=== PATIENT | female | born 1975 | race Caucasian/White ===

== ENCOUNTER 2017-11-01 17:14 | Emergency (ER) | payer BC ==
[~2017-11-01] VITALS: Ht 157.5 cm; Wt 63.5 kg
[2017-11-01 17:18] VITALS: BP_SYST 128
[2017-11-01] MEDS: ONDANSETRON 4 MG ODT TAB PO ONE (18:14)
[2017-11-01] MEDS: KETOROLAC TROMETHAMINE 60 MG/2 ML VIAL IM ONE (18:15)
[2017-11-01 18:41] VITALS: BP_SYST 120
== END 2017-11-01 18:41 | disposition home or self-care (01) ==
LOC: SED 17:14
DX: R07.89 Other chest pain (principal); R05 Cough; R06.00 Dyspnea, unspecified; J45.909 Unspecified asthma, uncomplicated; Z88.1 Allergy status to other antibiotic agents
CPT/HCPCS: 96372; 99283; J1885; Q0162

== ENCOUNTER 2017-12-14 07:15 | Day surgery (SDC) | payer BC ==
[~2017-12-14] VITALS: Ht 157.5 cm; Wt 62.1 kg
[2017-12-14] MEDS ORDERED: LR 1,000 ML IV SCH (10:24)
[2017-12-14] MEDS ORDERED: METOCLOPRAMIDE HCL 10 MG/2 ML VIAL IVP PRN (10:30)
[2017-12-14] MEDS ORDERED: MORPHINE 4 MG/ML INJ. SYRINGE IVP PRN ×3 (10:30)
[2017-12-14] MEDS ORDERED: ONDANSETRON HCL 4 MG/2 ML VIAL IVP PRN (11:15)
[2017-12-14] MEDS ORDERED: OXYCODONE/ACETAMINOPHEN 5-325 TABLET PO PRN ×2 (11:15)
[2017-12-14] MEDS ORDERED: MORPHINE 4 MG/ML INJ. SYRINGE ONE (11:29)
[2017-12-14 12:45] VITALS: BP_SYST 116
== END 2017-12-14 13:45 | disposition home or self-care (01) ==
LOC: SMU 07:15 → SDS 07:15
PROVIDERS: ATTEND Obstetrics & Gynecology
DX: N92.0 Excessive and frequent menstruation with regular cycle (principal); Z98.890 Other specified postprocedural states; Z80.3 Family history of malignant neoplasm of breast; Z87.891 Personal history of nicotine dependence; Z79.899 Other long term (current) drug therapy; Z88.8 Allergy status to other drugs, medicaments and biological substances; I10 Essential (primary) hypertension; J45.909 Unspecified asthma, uncomplicated; K21.9 Gastro-esophageal reflux disease without esophagitis; M19.90 Unspecified osteoarthritis, unspecified site; G62.9 Polyneuropathy, unspecified
CPT/HCPCS: 58563; 88305; J2270; J7120

== ENCOUNTER 2018-03-24 16:26 | Emergency (ER) | payer BC ==
[~2018-03-24] VITALS: Ht 157.5 cm; Wt 63.5 kg
[2018-03-24 16:26] VITALS: BP_SYST 136
[2018-03-24] MEDS ORDERED: LIDOCAINE 1%, 20 ML MDV 20 ML ONE (17:52)
[2018-03-24] MEDS ORDERED: ONDANSETRON HCL 4 MG/2 ML VIAL IVP ONE (18:15)
[2018-03-24] MEDS ORDERED: MORPHINE 4 MG/ML INJ. SYRINGE IVP ONE (18:15)
[2018-03-24 18:23] LABS: BILIRUBIN,URINE NEGATIVE (NEGATIVE); BLOOD, URINE 1+ (NEGATIVE); CLARITY/URINE CLEAR (CLEAR); COLOR,URINE YELLOW (YELLOW); GLUCOSE,URINE NEGATIVE (NEGATIVE); KETONES,URINE TRACE (NEGATIVE); LEUKOCYTE ESTERASE ,URINE NEGATIVE (NEGATIVE); NITRITE, URINE NEGATIVE (NEGATIVE); PH,URINE 5.5 (5.0-8.0); PROTEIN URINE NEGATIVE (NEGATIVE); UROBILINOGEN,URINE 0.2 (0.2-1.0)
[2018-03-24 18:25] LABS: CSF PROTEIN 36 mg/dL (15-45)
[2018-03-24 18:26] LABS: CSF GLUCOSE 63 mg/dL (40-70)
[2018-03-24 18:33] LABS: BACTERIA,URINE FEW /HPF (None Seen); RBC,URINE 0-3 /HPF (0-3); WBC,URINE 0-3 /HPF (0-3)
[2018-03-24 18:36] LABS: BASOPHILS # (AUTO) 0.1 K/uL (0.0-0.2); BASOPHILS % (AUTO) 0.7 % (0.0-2.0); EOSINOPHILS # (AUTO) 0.5 K/uL (0.0-0.4); EOSINOPHILS % (AUTO) 4.6 % (0.0-4.0); HEMATOCRIT 41.7 % (36-48); HEMOGLOBIN 14.1 g/dL (12.0-16.0); LYMPHOCYTES # (AUTO) 2.4 K/uL (1.0-5.5); MEAN CORPUSCULAR HEMOGLOBIN 32 pg (27-31); MEAN CORPUSCULAR HGB CONC 34 % (32-36); MEAN CORPUSCULAR VOLUME 95 fL (79.0-98.0); MONOCYTES # (AUTO) 0.7 K/uL (0.0-1.0); MONOCYTES % (AUTO) 6.4 % (1.7-9.3); NEUTROPHILS # (AUTO) 7.4 K/uL (1.8-7.7); NEUTROPHILS % (AUTO) 66.3 % (40.0-70.0); PLATELET COUNT (AUTO) 250 K/uL (130-430); RED BLOOD CELL COUNT(AUTO) 4.39 MIL/uL (4.2-6.2); RED CELL DISTRIBUTION WIDTH 12.3 % (9.0-15.0); WHITE BLOOD COUNT (AUTO) 11.1 K/uL (4.8-10.8)
[2018-03-24 18:45] LABS: CALCIUM 9.1 mg/dL (8.4-11.0); CREATININE 0.73 mg/dL (0.55-1.30); POTASSIUM 3.3 mmol/L (3.5-5.1)
[2018-03-24 18:45] LABS: CSF APPEARANCE SLIGHTLY HAZY (CLEAR); CSF COLOR PINK (COLORLESS); CSF VOLUME 4.5 mL
[2018-03-24 18:46] LABS: CSF RED BLOOD CELL COUNT #1 770 /uL (0-0); CSF RED BLOOD CELL COUNT #4 0 /uL (0-0); CSF WHITE BLOOD CELL COUNT #1 2 /uL (0-5); CSF WHITE BLOOD CELL COUNT #4 1 /uL (0-5)
[2018-03-24 18:50] LABS: ALBUMIN 3.6 g/dL (3.4-4.8); TOTAL BILIRUBIN 0.2 mg/dL (0.0-1.0)
[2018-03-24] MEDS ORDERED: HYDROmorphone 1 MG INJ. 1 MG/ML AMPUL IVP ONE (19:15)
[2018-03-24 20:04] VITALS: BP_SYST 129
== END 2018-03-24 20:00 | disposition home or self-care (01) ==
LOC: SED 16:26
DX: R51 Headache (principal); E87.6 Hypokalemia; B34.9 Viral infection, unspecified; M54.9 Dorsalgia, unspecified; R20.2 Paresthesia of skin; R26.2 Difficulty in walking, not elsewhere classified; J45.909 Unspecified asthma, uncomplicated; Z88.1 Allergy status to other antibiotic agents; Z88.6 Allergy status to analgesic agent
CPT/HCPCS: 36415; 70450; 71045; 80053; 81000; 81025; 82947; 83605; 84157; 84484; 85025; 85048; 87040; 87070; 87086; 87205; 87899; 89051 ×2; 96374; 96375; 99285; J1170; J2001; J2270; J2405

== ENCOUNTER 2018-12-31 16:14 | Inpatient (IN) | payer BC ==
[~2018-12-31] VITALS: Ht 157.5 cm; Wt 65.5 kg
[2018-12-31 16:14] VITALS: BP_SYST 141
[2018-12-31] MEDS ORDERED: NACL 0.9% 1,000 ML IV ONE (16:30)
[2018-12-31] MEDS ORDERED: IPRATROPIUM/ALBUTEROL SULFATE 3 ML AMPUL.NEB (DUONEB) INH ONE ×2 (16:30→17:30)
[2018-12-31] MEDS ORDERED: MAGNESIUM SULFATE 50 ML IV ONE (16:30)
[2018-12-31] MEDS ORDERED: methylPREDNISolone SOD SUCC/PF 62.5 MG/ML VIAL IVP ONE (16:30)
[2018-12-31 16:55] LABS: BASOPHILS # (AUTO) 0.1 K/uL (0.0-0.2); BASOPHILS % (AUTO) 0.7 % (0.0-2.0); EOSINOPHILS # (AUTO) 1.8 K/uL (0.0-0.4); EOSINOPHILS % (AUTO) 11.4 % (0.0-4.0); HEMATOCRIT 44.1 % (36-48); LYMPHOCYTES # (AUTO) 3.6 K/uL (1.0-5.5); LYMPHOCYTES % (AUTO) 22.3 % (20.5-51.5); MEAN CORPUSCULAR HEMOGLOBIN 33 pg (27-31); MEAN CORPUSCULAR HGB CONC 34 % (32-36); MEAN CORPUSCULAR VOLUME 96 fL (79.0-98.0); MONOCYTES # (AUTO) 1.2 K/uL (0.0-1.0); MONOCYTES % (AUTO) 7.7 % (1.7-9.3); NEUTROPHILS # (AUTO) 9.3 K/uL (1.8-7.7); NEUTROPHILS % (AUTO) 57.9 % (40.0-70.0); PLATELET COUNT (AUTO) 255 K/uL (130-430)
[2018-12-31 17:02] LABS: CALCIUM 9.4 mg/dL (8.4-11.0); POTASSIUM 3.7 mmol/L (3.5-5.1)
[2018-12-31 17:10] LABS: ALBUMIN 3.6 g/dL (3.4-4.8); TOTAL BILIRUBIN 0.3 mg/dL (0.0-1.0)
[2018-12-31] MEDS ORDERED: ACETAMINOPHEN 500 MG TABLET PO ONE (17:30)
[2018-12-31] MEDS ORDERED: LEVOFLOXACIN 500 MG/D5W 100 ML IV ONE (18:00)
[2018-12-31] MEDS ORDERED: ONDANSETRON HCL 4 MG/2 ML VIAL IVP PRN (19:00)
[2018-12-31 19:30] VITALS: BP_SYST 124
[2018-12-31 19:38] VITALS: BP_SYST 124
[2018-12-31] MEDS ORDERED: VALA10002 PO (19:56)
[2018-12-31] MEDS: ALBUTEROL SULFATE 0.083% 2.5 MG/3 ML VIAL.NEB INH SCH ×2 (20:18→22:24)
[2018-12-31] MEDS: IPRATROPIUM BROM 0.5 MG/2.5 ML VIAL.NEB (ATROVENT) INH SCH ×2 (20:18→22:24)
[2018-12-31] MEDS ORDERED: LORA-843 PO (20:26)
[2018-12-31 20:30] VITALS: BP_SYST 124
[2018-12-31] MEDS ORDERED: BECL10.62 IH (21:41)
[2018-12-31 23:00] VITALS: BP_SYST 135
[2018-12-31] MEDS ORDERED: valACYclovir HCL 500 MG TABLET PO ONE (23:00)
[2018-12-31 23:24] LABS: BILIRUBIN,URINE NEGATIVE (NEGATIVE); BLOOD, URINE NEGATIVE (NEGATIVE); CLARITY/URINE CLEAR (CLEAR); COLOR,URINE YELLOW (YELLOW); GLUCOSE,URINE NEGATIVE (NEGATIVE); KETONES,URINE NEGATIVE (NEGATIVE); LEUKOCYTE ESTERASE ,URINE TRACE (NEGATIVE); NITRITE, URINE NEGATIVE (NEGATIVE); PROTEIN URINE NEGATIVE (NEGATIVE); UROBILINOGEN,URINE 0.2 (0.2-1.0)
[2018-12-31] MEDS ORDERED: FLUTICASONE FUROATE 200 MCG BLST.W.DEV INH ONE (23:30)
[2018-12-31 23:40] LABS: RBC,URINE 0-3 /HPF (0-3)
[2018-12-31 23:41] LABS: BACTERIA,URINE FEW /HPF (None Seen)
[2019-01-01] MEDS: IPRATROPIUM BROM 0.5 MG/2.5 ML VIAL.NEB (ATROVENT) INH PRN (00:47)
[2019-01-01] MEDS: ALBUTEROL SULFATE 0.083% 2.5 MG/3 ML VIAL.NEB INH PRN (00:47)
[2019-01-01] MEDS: ACETAMINOPHEN 325 MG TABLET PO PRN ×2 (01:03→16:29)
[2019-01-01] MEDS ORDERED: DEXAMETHASONE SOD PHOSPHATE 10 MG/ML VIAL IVP ONE (01:30)
[2019-01-01] MEDS: guaiFENesin/DEXTROMETHORPHAN 10 ML UDC PO PRN ×2 (01:33→08:43)
[2019-01-01] MEDS: IPRATROPIUM BROM 0.5 MG/2.5 ML VIAL.NEB (ATROVENT) INH SCH ×6 (03:00→23:05)
[2019-01-01] MEDS: ALBUTEROL SULFATE 0.083% 2.5 MG/3 ML VIAL.NEB INH SCH ×6 (03:00→23:05)
[2019-01-01] MEDS ORDERED: DEXAMETHASONE SOD PHOSPHATE 10 MG/ML VIAL IVP SCH (06:00)
[2019-01-01 06:44] LABS: BASOPHILS # (AUTO) 0.1 K/uL (0.0-0.2); BASOPHILS % (AUTO) 0.5 % (0.0-2.0); EOSINOPHILS # (AUTO) 0.1 K/uL (0.0-0.4); EOSINOPHILS % (AUTO) 0.8 % (0.0-4.0); HEMATOCRIT 39.6 % (36-48); HEMOGLOBIN 13.5 g/dL (12.0-16.0); LYMPHOCYTES # (AUTO) 0.8 K/uL (1.0-5.5); LYMPHOCYTES % (AUTO) 6.8 % (20.5-51.5); MEAN CORPUSCULAR HEMOGLOBIN 33 pg (27-31); MEAN CORPUSCULAR HGB CONC 34 % (32-36); MEAN CORPUSCULAR VOLUME 96 fL (79.0-98.0); MONOCYTES # (AUTO) 0.2 K/uL (0.0-1.0); MONOCYTES % (AUTO) 1.6 % (1.7-9.3); NEUTROPHILS # (AUTO) 10.2 K/uL (1.8-7.7); NEUTROPHILS % (AUTO) 90.3 % (40.0-70.0); PLATELET COUNT (AUTO) 231 K/uL (130-430); RED BLOOD CELL COUNT(AUTO) 4.11 MIL/uL (4.2-6.2); WHITE BLOOD COUNT (AUTO) 11.3 K/uL (4.8-10.8)
[2019-01-01 07:05] LABS: CALCIUM 8.7 mg/dL (8.4-11.0); CREATININE 0.81 mg/dL (0.55-1.30); POTASSIUM 3.4 mmol/L (3.5-5.1)
[2019-01-01 07:14] LABS: ALBUMIN 3.3 g/dL (3.4-4.8); TOTAL BILIRUBIN 0.3 mg/dL (0.0-1.0)
[2019-01-01 08:00] VITALS: BP_SYST 142
[2019-01-01] MEDS: FLUTICASONE FUROATE 200 MCG BLST.W.DEV INH SCH (08:45)
[2019-01-01] MEDS: valACYclovir HCL 500 MG TABLET PO SCH ×2 (08:45→20:06)
[2019-01-01] MEDS ORDERED: FLUTICASONE FUROATE 100 MCG BLST.W.DEV INH SCH (09:00)
[2019-01-01] MEDS ORDERED: AZITHROMYCIN 250 MG TABLET PO ONE (11:15)
[2019-01-01 11:20] VITALS: BP_SYST 120
[2019-01-01] MEDS ORDERED: POTASSIUM CHLORIDE 20 MEQ TAB.PRT.SR PO ONE (11:30)
[2019-01-01 15:46] VITALS: BP_SYST 111
[2019-01-01 20:00] VITALS: BP_SYST 132
[2019-01-01] MEDS ORDERED: DEXAMETHASONE SOD PHOSPHATE 4 MG/ML VIAL IVP ONE (20:30)
[2019-01-01] MEDS: methylPREDNISolone SOD SUCC 40 MG/ML VIAL IVP SCH (20:30)
[2019-01-01] MEDS: POLYETHYLENE GLYCOL 3350, 17 GM/ POWD.PACK PO SCH (20:53)
[2019-01-01] MEDS ORDERED: MONTELUKAST 10 MG TABLET PO SCH (21:00)
[2019-01-01 23:29] VITALS: BP_SYST 122
[2019-01-02] MEDS: IPRATROPIUM BROM 0.5 MG/2.5 ML VIAL.NEB (ATROVENT) INH SCH ×4 (03:14→15:00)
[2019-01-02] MEDS: ALBUTEROL SULFATE 0.083% 2.5 MG/3 ML VIAL.NEB INH SCH ×4 (03:14→15:00)
[2019-01-02] MEDS: ACETAMINOPHEN 325 MG TABLET PO PRN ×2 (06:12→14:55)
[2019-01-02] MEDS: guaiFENesin/DEXTROMETHORPHAN 10 ML UDC PO PRN ×2 (06:16→14:55)
[2019-01-02 07:05] LABS: CALCIUM 9.1 mg/dL (8.4-11.0); CREATININE 0.72 mg/dL (0.55-1.30); POTASSIUM 3.8 mmol/L (3.5-5.1)
[2019-01-02 07:11] LABS: BASOPHILS # (AUTO) 0.1 K/uL (0.0-0.2); BASOPHILS % (AUTO) 0.4 % (0.0-2.0); HEMATOCRIT 38.8 % (36-48); HEMOGLOBIN 13.3 g/dL (12.0-16.0); LYMPHOCYTES # (AUTO) 1.2 K/uL (1.0-5.5); LYMPHOCYTES % (AUTO) 5.6 % (20.5-51.5); MEAN CORPUSCULAR HEMOGLOBIN 33 pg (27-31); MEAN CORPUSCULAR HGB CONC 34 % (32-36); MEAN CORPUSCULAR VOLUME 96 fL (79.0-98.0); MONOCYTES # (AUTO) 0.7 K/uL (0.0-1.0); MONOCYTES % (AUTO) 3.2 % (1.7-9.3); NEUTROPHILS # (AUTO) 19.9 K/uL (1.8-7.7); NEUTROPHILS % (AUTO) 90.8 % (40.0-70.0); PLATELET COUNT (AUTO) 250 K/uL (130-430); RED BLOOD CELL COUNT(AUTO) 4.03 MIL/uL (4.2-6.2); RED CELL DISTRIBUTION WIDTH 13.1 % (9.0-15.0)
[2019-01-02 07:16] LABS: ALBUMIN 3.4 g/dL (3.4-4.8); TOTAL BILIRUBIN 0.2 mg/dL (0.0-1.0)
[2019-01-02 07:36] LABS: WHITE BLOOD COUNT (AUTO) 21.9 K/uL (4.8-10.8)
[2019-01-02 08:12] VITALS: BP_SYST 133
[2019-01-02] MEDS: POLYETHYLENE GLYCOL 3350, 17 GM/ POWD.PACK PO SCH (08:50)
[2019-01-02] MEDS: valACYclovir HCL 500 MG TABLET PO SCH (08:52)
[2019-01-02] MEDS: FLUTICASONE FUROATE 200 MCG BLST.W.DEV INH SCH (08:52)
[2019-01-02] MEDS: methylPREDNISolone SOD SUCC 40 MG/ML VIAL IVP SCH (09:00)
[2019-01-02] MEDS ORDERED: AZITHROMYCIN 250 MG TABLET PO SCH (09:00)
[2019-01-02] MEDS ORDERED: DEXAMETHASONE SOD PHOSPHATE 10 MG/ML VIAL IVP ONE (09:45)
[2019-01-02 11:20] VITALS: BP_SYST 114
[2019-01-02] MEDS ORDERED: DEC4 PO (12:38)
[2019-01-02] MEDS ORDERED: MONT10TA25 PO (12:42)
[2019-01-02] MEDS ORDERED: ALBU8.5H8 INH (12:45)
[2019-01-02] MEDS ORDERED: AZIT500T10 PO (12:53)
[2019-01-02] MEDS: ALBUTEROL SULFATE 0.083% 2.5 MG/3 ML VIAL.NEB INH PRN (13:39)
[2019-01-02] MEDS: IPRATROPIUM BROM 0.5 MG/2.5 ML VIAL.NEB (ATROVENT) INH PRN (13:40)
[2019-01-02 15:45] VITALS: BP_SYST 116
[2019-01-02 16:26] VITALS: BP_SYST 116
== END 2019-01-02 16:50 | disposition home or self-care (01) | DRG 203 ==
LOC: SED 16:14 → STU 18:58 → SMU 01-01 10:30
PROVIDERS: ADMIT Internal Medicine; ATTEND Internal Medicine
DX: J45.901 Unspecified asthma with (acute) exacerbation (principal); M41.9 Scoliosis, unspecified; I10 Essential (primary) hypertension; D72.829 Elevated white blood cell count, unspecified; T38.0X5A Adverse effect of glucocorticoids and synthetic analogues, initial encounter; G43.909 Migraine, unspecified, not intractable, without status migrainosus; Y92.89 Other specified places as the place of occurrence of the external cause; Z88.8 Allergy status to other drugs, medicaments and biological substances; Z80.0 Family history of malignant neoplasm of digestive organs; Z80.3 Family history of malignant neoplasm of breast; Z86.010 Personal history of colon polyps; Z90.49 Acquired absence of other specified parts of digestive tract; Z88.1 Allergy status to other antibiotic agents; Z88.5 Allergy status to narcotic agent; Z85.858 Personal history of malignant neoplasm of other endocrine glands
CPT/HCPCS: 36415; 70220-TC; 71045; 80053; 81000-TC; 82785; 85025; 87040-TC; 93005; 94640; 94760; 99285; G0378; J1030; J1100; J1956; J2930; J3475; J7613; J7620; Q0144

== ENCOUNTER 2019-11-04 14:40 | Emergency (ER) | payer BC ==
[~2019-11-04] VITALS: Ht 157.5 cm; Wt 54.4 kg
[2019-11-04 14:40] VITALS: BP_SYST 119
[~2019-11-04 14:40] MED LIST: ALBU8.5H8 INH; AZIT500T10 PO; BECL10.62 IH; DEC4 PO; LORA-843 PO; MONT10TA25 PO; VALA10002 PO
--- NOTE | 2019-11-04 14:48 | NUR ---
Patient to ER bed 7 to gown for evaluation. Side rails up.
--- NOTE | 2019-11-04 14:51 | NUR ---
CELIO Jara at bedside examining patient.
[2019-11-04] MEDS ORDERED: DECADRON 4 MG TABLET PO ONE (15:00)
--- NOTE | 2019-11-04 15:05 | NUR ---
Patient presented to ER C/O flu-like symptoms . Patient A&Ox4, ambulatory to ER, afebrile, skin pink and warm, pain 0 /10 , denies N/V/D. Patient states she has low-grade fever, runny nose & cough. Patient states she had positive test for flu A 09/30/2019 and PMD referred pt to ER for current symptoms & hx of CA
[2019-11-04 16:23] VITALS: BP_SYST 119
--- NOTE | 2019-11-04 16:23 | NUR ---
Patient given written and verbal discharge instructions and verbalizes understanding. ER MD discussed with patient the results and treatment provided. Patient in stable condition. ID arm band removed. Rx of Dexamethasone given. Patient educated on pain management and to follow up with PMD. Pain Scale 0/10. Opportunity for questions provided and answered. Medication side effect fact sheet provided.
== END 2019-11-04 16:23 | disposition home or self-care (01) ==
LOC: SED 14:40
DX: R05 Cough (principal); J44.9 Chronic obstructive pulmonary disease, unspecified; Z88.5 Allergy status to narcotic agent; Z88.8 Allergy status to other drugs, medicaments and biological substances; Z85.89 Personal history of malignant neoplasm of other organs and systems
CPT/HCPCS: 71045; 99283; J8540